=== PATIENT | female | born 1995 | race Caucasian/White ===

== ENCOUNTER 2017-02-18 04:30 | Emergency (ER) | payer MEDICAID ==
[~2017-02-18 04:30] MED LIST: BUPR1FIL3 PO; CLON1TAB PO
[2017-02-18 11:57] LABS: BLOOD UREA NITROGEN 15 mg/dL (7-18)
[2017-02-18 12:57] LABS: HEMATOCRIT 44.3 % (34.6-47.8); WHITE BLOOD COUNT 9.1 x10^3/uL (3.4-10)
== END 2017-02-18 13:37 | disposition home or self-care (01) ==
LOC: ED 08:54
DX: T40.1X1A Poisoning by heroin, accidental (unintentional), initial encounter (principal); F17.210 Nicotine dependence, cigarettes, uncomplicated; Y92.9 Unspecified place or not applicable
CPT/HCPCS: 36415; 71010; 80048; 82040; 85025; 93005; 99285

== ENCOUNTER 2020-05-28 15:39 | Emergency (ER) | payer MEDICAID ==
[~2020-05-28] VITALS: Ht 170.2 cm; Wt 61.7 kg
[2020-05-28 15:53] VITALS: BP 143/93
--- NOTE | 2020-05-28 16:25 | NUR ---
patient signed ama form. eloped at this time
== END 2020-05-28 16:28 | disposition left against medical advice (07) ==
LOC: ED 16:00
DX: B34.9 Viral infection, unspecified (principal); R51.9 Headache, unspecified
CPT/HCPCS: 99281